=== PATIENT | female | born 1965 | race Caucasian/White ===

== ENCOUNTER 2025-04-22 17:08 | Emergency (ER) | payer OTHER ==
[2025-04-22] MEDS ORDERED: ONDANSETRON 4 MG/2 ML VIAL ONE (17:53)
[2025-04-22] MEDS ORDERED: MORPHINE 2 MG/ML SYR ONE (17:53)
[2025-04-22] MEDS ORDERED: NA CHLORIDE 0.9% 0 ML ONE (18:05)
--- NOTE | 2025-04-22 18:44 | RAD REPORT ---
EXAMINATION: Head Brain Wo Cont CLINICAL INDICATION: Female, 59 years old.HEADACHE TECHNIQUE: Axial CT images from the skull base to the vertex without intravenous contrast. Coronal an d sagittal reformatted images were created from the data set. One or more of the following dose reduction techniques were used: Automated exposure control, adjustment of the mA and/or kV according to patient size, and/or iterative reconstruction. Unless otherwise specified, incidental findings do not require dedicated imaging follow-up. [id number]. COMPARISON: No prior exams FINDINGS: INTRACRANIAL: No acute intracranial hemorrhage. No acute large vascular territory infarct. No hydro cephalus. No mass effect or midline shift. No significant white matter disease. VASCULATURE: No visualized abnormalities in the arteries or dural venous sinuses. SCALP/SKULL: No calvarial fracture identified. No acute soft tissue abnormality. SINUSES: The visualized paranasal sinuses are mostly clear. No significant mastoid fluid. IMPRESSION: No acute intracranial abnormality.
--- NOTE | 2025-04-22 18:53 | EDPHYS ---
Physician Documentation [facility] Name: Tami Joe Age: 59 yrs Sex: Female : 1965 Arrival Date: 04/22/2025 Time: 17:08 Bed 8 Private MD: ED Physician Jens Donnelly HPI: 04/22 17:54 This 59 yrs old Female presents to ER via Ambulatory with complaints of Headache. rn 17:54 Patient reports migraine headache, intermittent for the last 1 month. Has history of rn migraines and feels identical to previous migraines but this 1 is not improving despite pmmw-inw-bqtnork medication. No trauma. No fever or chills. No neck stiffness. No focal neurological deficits. Came for pain control. Reports has had imaging in the past when she was originally diagnosed with migraines but nothing recent. No history of aneurysm or brain tumor or stroke.. Historical: - Allergies: 17:20 Depakote; me1 17:20 ; me1 17:20 metformin; me1 17:20 mecamylamine; me1 - PMHx: 17:20 Diabetes mellitus; Migraine; Bipolar disorder; manic depressive; me1 - PSHx: 17:20 neck surgery; bilateral foot; Total abdominal hysterectomy; me1 - Immunization history:: Adult Immunizations up to date. - Infectious Disease History:: Denies. - Social history:: Smoking status: Patient reports the use of cigarette tobacco products, smokes one pack cigarettes per day. - Family history:: not pertinent. - Hospitalizations: : No recent hospitalization is reported. ROS: 17:54 Constitutional: Negative for fever, chills, and weight loss, Eyes: Negative for injury, rn redness, and discharge, Cardiovascular: Negative for chest pain, palpitations, and edema, Respiratory: Negative for shortness of breath, cough, wheezing, and pleuritic chest pain, Abdomen/GI: Negative for abdominal pain, nausea, vomiting, diarrhea, and constipation, MS/Extremity: Negative for injury and deformity, Skin: Negative for injury, rash, and discoloration, Neuro: Positive for headache, negative for focal weakness or numbness. No seizure. Exam: 17:54 Constitutional: This is a well developed, well nourished patient who is awake, alert, rn and in no acute distress. Head/Face: Normocephalic, atraumatic. Eyes: Pupils equal round and reactive to light, extra-ocular motions intact. Lids and lashes normal. Conjunctiva and sclera are non-icteric and not injected. Cornea within normal limits. Periorbital areas with no swelling, redness, or edema. Cardiovascular: Regular rate and rhythm. No pulse deficits. Respiratory: No increased work of breathing, no retractions or nasal flaring. Abdomen/GI: Soft, non-tender MS/ Extremity: Pulses equal, no cyanosis. Neuro: Awake and alert, GCS 15, oriented to person, place, time, and situation. Cranial nerves II-XII grossly intact. Motor strength 5/5 in all extremities. Sensory grossly intact. Cerebellar exam normal. Normal gait. Vital Signs: 17:16 BP 123 / 73; Pulse 95; Resp 20; Temp 98.3; Pulse Ox 94% ; Weight 100.7 kg; Height 5 ft. me1 4 in. ; Pain 8/10; 18:00 BP 135 / 93; Pulse 77; Resp 18; Pulse Ox 98% on R/A; ar8 19:16 BP 134 / 88; Pulse 78; Resp 18; Pulse Ox 99% ; vc1 17:16 Body Mass Index 38.11 (100.70 kg, 162.56 cm) me1 17:16 Pain Scale: Adult me1 Milla Coma Score: 18:41 Eye Response: spontaneous(4). Motor Response: obeys commands(6). Verbal Response: rn oriented(5). Total: 15. MDM: 17:18 Medical Screening Exam initiated rn 18:41 Differential diagnosis: hypertensive headache, intracerebral hemorrhage, migraine, rn neoplasm, tension headache, vasomotor headache. Data reviewed: vital signs, nurses notes, radiologic studies, CT scan. Independent interpretation of the following test(s) in the Emergency Department CT Scan: My interpretation is CT head images negative for acute hemorrhage per my interpretation. Counseling: I had a detailed discussion with the patient and/or guardian regarding the historical points, exam findings, and any diagnostic results supporting the discharge/admit diagnosis, radiology results, the need for outpatient follow up, to return to the emergency department if symptoms worsen or persist or if there are any questions or concerns that arise at home. ED course: Nurse attempted IV, IV blew, patient refused reattempt. Patient request medications IM and wants to be discharged immediately. CT head images do not show anything acute.. 18:48 Special discussion: I discussed with the patient/guardian in detail that at this point rn there is no indication for admission to the hospital. It is understood, however, that if the symptoms persist or worsen the patient needs to return immediately for re-evaluation. 04/22 17:24 Order name: CT Head Brain wo Cont; Complete Time: 18:47 rn Administered Medications: 18:28 Not Given (Patient Refused): ns 0.9% 500 ml 500 ml IV at 1 bolus once; to be given as a ar8 bolus over 30 minutes 18:30 Not Given (Patient Refused): Decadron - [id number] mg IVP once ar8 18:30 Not Given (Patient Refused): morphineor iv 2 mg IVP once over 4 mins ar8 18:30 Not Given (Patient Refused; Pt requested IM, MD notified. Order changed): ondansetron 4 ar8 mg IVP once; over 2 minutes 18:39 Drug: Dexamethasone IM 10 mg IM once Route: IM; Site: left ventrogluteal; ar8 18:40 Drug: Zofran IM 4 mg IM once Route: IM; Site: right ventrogluteal; ar8 18:40 Drug: morphine IM 2 mg IM once Route: IM; Site: right ventrogluteal; ar8 Disposition Summary: 04/22/25 18:52 Discharge Ordered Notes: Location: Home rn Problem: an ongoing problem rn Symptoms: have improved rn Condition: Stable rn Diagnosis - Migraine, unspecified, not intractable, without status migrainosus rn Followup: rn - With: Private Physician - When: As needed - Reason: Recheck today's complaints, Re-evaluation by your physician Discharge Instructions: - Discharge Summary Sheet rn - Migraine Headache rn Forms: - Medication Reconciliation Form rn - Antibiotic clay burner - Prescription Opioid Use rn - Patient Portal Instructions rn - Leadership Thank You Letter rn Signatures: Dispatcher [employer] Jens Simpson MD MD rn Eddleman, Michelle, RN RN me1 Mike Cedeno RN RN ar8 Corrections: (The following items were deleted from the chart) 18: 17:24 IV Saline Lock ordered. rn ar8
--- NOTE | 2025-04-22 18:53 | ER ---
Nurse's Notes [facility] Name: Tami Joe Age: 59 yrs Sex: Female : 1965 Arrival Date: 04/22/2025 Time: 17:08 Bed 8 Private MD: Diagnosis: Migraine, unspecified, not intractable, without status migrainosus Presentation: 04/22 17:16 Chief complaint: Patient states: c/o migraine with bilateral eye pain and neck pain me1 that started one month ago. Pain level 8/10. Coronavirus screen: At this time, the client does not indicate any symptoms associated with coronavirus-19. Ebola Screen: No symptoms or risks identified at this time. Initial Sepsis Screen: Does the patient meet any 2 criteria? HR > 90 bpm. Does the patient have a suspected source of infection? No. Patient's initial sepsis screen is negative. Risk Assessment: Do you want to hurt yourself or someone else? Patient reports no desire to harm self or others. Onset of symptoms is unknown. 17:16 Method Of Arrival: Ambulatory me1 17:16 Acuity: ANIYAH 3 me1 Historical: - Allergies: 17:20 Depakote; me1 17:20 ; me1 17:20 metformin; me1 17:20 mecamylamine; me1 - PMHx: 17:20 Diabetes mellitus; Migraine; Bipolar disorder; manic depressive; me1 - PSHx: 17:20 neck surgery; bilateral foot; Total abdominal hysterectomy; me1 - Immunization history:: Adult Immunizations up to date. - Infectious Disease History:: Denies. - Social history:: Smoking status: Patient reports the use of cigarette tobacco products, smokes one pack cigarettes per day. - Family history:: not pertinent. - Hospitalizations: : No recent hospitalization is reported. Screenin:00 [facility] ED Fall Risk Assessment (Adult) History of falling in the last 3 months, ar8 including since admission No falls in past 3 months (0 pts) Confusion or Disorientation No (0 pts) Intoxicated or Sedated No (0 pts) Impaired Gait No (0 pts) Mobility Assist Device Used No (0 pt) Altered Elimination No (0 pt) Score/Fall Risk Level 0 - 2 = Low Risk Oriented to surroundings, Maintained a safe environment. Abuse screen: Denies threats or abuse. Nutritional screening: No deficits noted. Tuberculosis screening: No symptoms or risk factors identified. Assessment: 18:00 Reassessment: Patient placed in ED room from lobby at this time Patient denies pain at ar8 this time. 18:10 General: Appears uncomfortable, Behavior is cooperative. Pain: Complains of pain in ar8 forehead, right eye and left eye. Neuro: Level of Consciousness is awake, alert, obeys commands, Oriented to person, place, time, situation. Cardiovascular: Patient's skin is warm and dry. Respiratory: Airway is patent Respiratory effort is even, unlabored, Respiratory pattern is regular, symmetrical. GI: No signs and/or symptoms were reported involving the gastrointestinal system. : No signs and/or symptoms were reported regarding the genitourinary system. Vital Signs: 17:16 BP 123 / 73; Pulse 95; Resp 20; Temp 98.3; Pulse Ox 94% ; Weight 100.7 kg; Height 5 ft. me1 4 in. ; Pain 8/10; 18:00 BP 135 / 93; Pulse 77; Resp 18; Pulse Ox 98% on R/A; ar8 19:16 BP 134 / 88; Pulse 78; Resp 18; Pulse Ox 99% ; vc1 17:16 Body Mass Index 38.11 (100.70 kg, 162.56 cm) me1 17:16 Pain Scale: Adult me1 Milla Coma Score: 18:41 Eye Response: spontaneous(4). Motor Response: obeys commands(6). Verbal Response: rn oriented(5). Total: 15. ED Course: 17:10 Patient arrived in ED. mr 17:18 Jens Donnelly MD is Attending Physician. rn 17:20 Triage completed. me1 17:20 Arm band placed on Patient placed in an exam room. me1 18:00 Bed in low position. Call light in reach. Side rails up X 1. Provided Education on: ar8 plan of care. Pulse ox on. NIBP on. 18:00 No provider procedures requiring assistance completed. Missed attempt(s): 20 gauge in ar8 right forearm. Bleeding controlled, band aid applied, catheter tip intact. 18:[address] via stretcher. ar8 18:22 CT Head Brain wo Cont In Process Unspecified. EDMS 19:15 Milvia Fletcher, STEVE is Primary Nurse. vc1 19:16 Patient did not have IV access during this emergency room visit. vc1 Administered Medications: 18:28 Not Given (Patient Refused): ns 0.9% 500 ml 500 ml IV at 1 bolus once; to be given as a ar8 bolus over 30 minutes 18:30 Not Given (Patient Refused): Decadron - [id number] mg IVP once ar8 18:30 Not Given (Patient Refused): morphineor iv 2 mg IVP once over 4 mins ar8 18:30 Not Given (Patient Refused; Pt requested IM, MD notified. Order changed): ondansetron 4 ar8 mg IVP once; over 2 minutes 18:39 Drug: Dexamethasone IM 10 mg IM once Route: IM; Site: left ventrogluteal; ar8 18:40 Drug: Zofran IM 4 mg IM once Route: IM; Site: right ventrogluteal; ar8 18:40 Drug: morphine IM 2 mg IM once Route: IM; Site: right ventrogluteal; ar8 Medication: 18:00 VIS not applicable for this client. ar8 Outcome: 18:52 Discharge ordered by . rn 19:16 Discharged to home ambulatory, with family, vc1 19:16 Condition: stable 19:16 Discharge instructions given to patient, Instructed on discharge instructions, follow up and referral plans. Demonstrated understanding of instructions, follow-up care, 19:16 Patient left the ED. vc1 Signatures: Dispatcher [employer] EDOR Viviane Garcia, Reg Reg mr Jens Donnelly MD MD rn Calcote, Vanessa RN RN vc1 Brittney Bolden RN RN moMike Stevens RN RN ar8 Corrections: (The following items were deleted from the chart) 18:14 18:00 Patient moved to [place] via stretcher. ar8 ar8
[2025-04-23 02:50] VITALS: TEMP 98.3
[2025-04-23 02:53] VITALS: BP 134/88; O2SAT 99
== END 2025-04-22 19:16 | disposition home or self-care (01) ==
LOC: ER 17:08
DX: G43.909 Migraine, unspecified, not intractable, without status migrainosus (principal); E11.9 Type 2 diabetes mellitus without complications; F31.9 Bipolar disorder, unspecified; F17.210 Nicotine dependence, cigarettes, uncomplicated; Z88.8 Allergy status to other drugs, medicaments and biological substances
CPT/HCPCS: 70450; 96372; 99284; J1100; J2270; J2405; J7040